=== PATIENT | female | born 1965 | race Caucasian/White ===

== ENCOUNTER 2021-04-03 21:31 | Emergency (ER) | payer OTHER, SELFPAY ==
[2021-04-03 21:42] VITALS: BP 176/91; PULSE 82; RESP 18; TEMP 36.5; O2SAT 100; BMI 27.4
--- NOTE | 2021-04-03 21:45 | DI.RAD.S_ITS ---
PROCEDURE: XR CHEST 1V INDICATIONS: chest pain TECHNIQUE: One view of the chest was acquired. COMPARISON: None. FINDINGS: Surgical changes and devices: None. Lungs and pleura: Lungs are clear. No pleural effusions or pneumothorax. Mediastinum: Mediastinal contours appear normal. Heart size is normal. Bones and chest wall: No suspicious bony lesions. Overlying soft tissues appear unremarkable. IMPRESSION: Normal for age, source of current chest pain symptoms is not seen. Dictated by: Neel Paul M.D. on 04/04/2021 at 7:07 Approved by: Neel Paul M.D. on 04/04/2021 at 7:09
[2021-04-03 22:18] VITALS: BP 158/88; PULSE 78; RESP 15; O2SAT 100
[2021-04-03 22:18] LABS: Add Manual Diff / Slide Review NO; Basophils Absolute Auto 0 /uL (0-100); Basophils Percent Auto 0.5 % (0-2); Eosinophils Absolute Auto 100 /uL (0-450); Eosinophils Percent Auto 0.6 % (2-4); Hemoglobin 12.7 g/dL (12.0-16.0); Lymphocytes Absolute Auto 1300 /uL (1100-4500); Lymphocytes Percent Auto 14.7 % (25-40); Mean Corpuscular HGB Conc 33.3 % (30-36); Mean Corpuscular Hemoglobin 30.1 PG (26-34); Mean Corpuscular Volume 90.5 fL (80-100); Monocytes Absolute Auto 500 /uL (0-900); Monocytes Percent Auto 5.9 % (3-14); Neutrophils Absolute Auto 7000 /uL (1500-7000); Neutrophils Percent Auto 78.3 % (50-75); Platelet Count 242 X10^3/uL (150-400); Red Cell Distribution Width 12.9 % (11.6-14.8)
[2021-04-03 22:29] LABS: Alanine Aminotransferase 17 IU/L (<35); Albumin 4.1 g/dL (3.5-5.0); Albumin Globulin Ratio 1.2 (1.0-2.8); Alkaline Phosphatase 157 U/L (38-126); Aspartate Aminotransferase 28 IU/L (14-36); BUN Creatinine Ratio 18.2 (6-22); Bilirubin Total 0.4 mg/dL (0.2-1.3); Blood Urea Nitrogen 12 mg/dL (7-17); Calcium 9.5 mg/dL (8.4-10.2); Carbon Dioxide 22 mmol/L (22-32); Chloride 98 mmol/L (98-107); Creatine Kinase 69 U/L (30-135); Estimated Glomerular Filt Rate > 60.0 mL/min (>60); Globulin 3.5 g/dL (1.7-4.1); Glucose 112 mg/dL (70-100); HEMOLYSIS 21 (0-50); Lipase 158 U/L (23-300); Potassium 3.5 mmol/L (3.4-5.1); Sodium 130 mmol/L (137-145); Total Protein 7.6 g/dL (6.3-8.2)
[2021-04-03 22:30] VITALS: BP 145/88; PULSE 71; RESP 16; O2SAT 97
[2021-04-03 22:41] LABS: Troponin I < 0.012 ng/mL (0.01-0.034)
[2021-04-03 23:00] VITALS: BP 137/82; PULSE 73; RESP 16; O2SAT 99
[2021-04-03 23:30] VITALS: BP 137/71; PULSE 75; RESP 13; O2SAT 95
[2021-04-04 00:07] VITALS: PULSE 70; RESP 25; O2SAT 98
[2021-04-04 00:30] VITALS: PULSE 71; RESP 13; O2SAT 97
[2021-04-04 01:00] VITALS: PULSE 67; RESP 15; O2SAT 94
[2021-04-04 01:00] LABS: Troponin I < 0.012 ng/mL (0.01-0.034)
[2021-04-04 01:30] VITALS: PULSE 62; RESP 28; O2SAT 95
--- NOTE | 2021-04-04 01:51 | ED_ITS ---
HPI - Chest Pain General Chief Complaint: Chest Pain Stated Complaint: anxiety Time Seen by Provider: 04/04/21 01:51 Source: patient Mode of arrival: Ambulatory Limitations: no limitations History of Present Illness HPI narrative: The patient developed left anterior chest discomfort yesterday. She has ongoing pain in the left upper outer chest. Pain is affected by deep breathing. Pain radiates to the sternum. She has pain in the left anterior neck, exacerbated by motion. She has no acute trauma to these areas. 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 She is uncertain if recent injury. She has no difficulty breathing, dizziness, or syncope/near syncope sensation. She has no cardiopulmonary disease. She is a nonsmoker. She denies recent illness. Related Data Previous Rx's Medication Instructions Recorded ibuprofen 600 mg PO Q6H PRN #40 tab 04/04/21 methocarbamol 750 mg PO Q6H PRN #40 tab 04/04/21 Allergies Allergy/AdvReac Type Severity Reaction Status Date / Time Sulfa (Sulfonamide Allergy Hives Verified 04/03/21 21:42 Antibiotics) tretinoin [From Retin-A] Allergy Rash Verified 04/03/21 21:42 Review of Systems Constitutional Constitutional: Denies body ache(s), Denies fever(s) and Denies headache(s) ENT Ears, Nose, Mouth, and Throat: Denies vertigo, Denies dizziness, Denies headache(s) and Denies sore throat Cardiovascular Cardiovascular: Reports as per HPI and Denies dyspnea Respiratory Respiratory: Denies cough and Denies dyspnea Gastrointestinal Gastrointestinal: Denies abdominal pain, Denies change in bowel habits, Denies diarrhea, Denies nausea and Denies vomiting Musculoskeletal Musculoskeletal: Denies arthralgias Integumentary/Breasts Skin/Breast: Denies pruritus and Denies rash Neurologic Neurologic: Denies confusion, Denies vertigo, Denies dizziness and Denies headache(s) Psychiatric Psychiatric: Denies confusion Hematologic/Lymphatic Hematologic/Lymphatic: Denies easy bruising Patient History Medical History (Updated 04/04/21 @ 03:01 by Lorenzo Price MD) Anxiety Surgical History (Updated 04/04/21 @ 02:56 by Lorenzo Price MD) No significant past surgical history Social History Smoking Status: Never smoker Smoking Status: Never smoker alcohol intake frequency: a few times a month Substance Use Type: does not use Exam Initial Vital Signs Initial Vital Signs: Vital Signs Temperature 97.7 F 04/03/21 21:42 Pulse Rate 82 04/03/21 21:42 Respiratory Rate 18 04/03/21 21:42 Blood Pressure 176/91 H 04/03/21 21:42 Pulse Oximetry 100 04/03/21 21:42 Const General: cooperative and well developed Nutritional Appearance: well nourished Other: No current suggestion of anxiety. HENMT Head: normal to inspection, normocephalic and atraumatic Neck Neck: No JVD Chest Other: Reproducible discomfort in the left upper outer chest, the distribution of the pectoralis major muscle. Tenderness extends to the sternum. Resp Effort & Inspection: normal respiratory effort and able to speak in complete sentences Auscultation: clear to auscultation bilaterally, no rales, no rhonchi and no wheezes Cardio Rate: regular rate Rhythm: regular rhythm Heart Sounds: S1 normal, S2 normal, no click, no gallops, no murmurs and no rubs Pulses: normal peripheral pulses GI Inspection: non-distended Palpation: soft, no hepatosplenomegaly, No guarding, No pulsatile mass and No tender Auscultation: normal bowel sounds Back/Spine/Pelvis Back: normal to inspection Skin General: no rashes or lesions noted Neuro General: patient alert, patient oriented x3, gait normal and no focal motor deficits Speech: speech normal Extrem General: no pedal edema and no calf tenderness Psych Appearance: well kempt Mental Status: mental status grossly normal Speech and Movement: speech and movement normal Course Course Course Narrative: Cardiopulmonary evaluation is normal. Exam suggest musculoskeletal strain to the left anterior chest. She was treated with Toradol here in the ER. She will be discharged home on Toradol and Robaxin. Orders Ordered: ED Orders 04/03/21 21:45 XR chest 1V Stat EKG-12 Lead Stat 04/03/21 22:10 Complete Blood Count AUTO DIFF Stat Comprehensive Metabolic Panel Stat Lipase Stat Troponin & CK Cardiac Panel Stat 04/04/21 00:30 Troponin I Stat Discontinued Medications Ketorolac Tromethamine (Ketorolac 30 Mg/Ml Vial) 15 mg IV NOW ONE Stop: 04/04/21 02:14 Last Admin: 04/04/21 02:23 Dose: 15 mg Documented by: DIANE Vital Signs Vital signs: Vital Signs - 8 hr 04/03/21 21:42 04/03/21 22:18 04/03/21 22:30 Temperature 97.7 F Pulse Rate 82 78 71 Respiratory Rate 18 15 16 Blood Pressure 176/91 H 158/88 H 145/88 H Pulse Oximetry 100 100 97 04/03/21 23:00 04/03/21 23:30 04/04/21 00:07 Temperature Pulse Rate 73 75 70 Respiratory Rate 16 13 25 H Blood Pressure 137/82 137/71 Pulse Oximetry 99 95 98 04/04/21 00:30 04/04/21 01:00 04/04/21 01:30 Temperature Pulse Rate 71 67 62 Respiratory Rate 13 15 28 H Blood Pressure Pulse Oximetry 97 94 95 04/04/21 02:00 04/04/21 02:30 Temperature Pulse Rate 83 62 Respiratory Rate 29 H 21 Blood Pressure Pulse Oximetry 98 96 MDM - Chest Pain Lab Data Result diagrams: 04/03/21 22:10 04/03/21 22:10 Labs: Lab Results 04/03/21 04/03/21 04/04/21 Range/Units 22:10 22:10 00:30 WBC 9.0 (4.5-11.0) X10^3/uL RBC 4.20 (4.0-5.2) X10^6/uL Hgb 12.7 (12.0-16.0) g/dL Hct 38.0 (36-46) % MCV 90.5 (80-100) fL MCH 30.1 (26-34) PG MCHC 33.3 (30-36) % RDW 12.9 (11.6-14.8) % Plt Count 242 (150-400) X10^3/uL Neut % (Auto) 78.3 H (50-75) % Lymph % (Auto) 14.7 L (25-40) % [place] % (Auto) 5.9 (3-14) % Eos % (Auto) 0.6 L (2-4) % Baso % (Auto) 0.5 (0-2) % Neut # (Auto) 7000 (6141-5993) /uL Lymph # (Auto) 1300 (4580-0139) /uL [place] # (Auto) 500 (0-900) /uL Eos # (Auto) 100 (0-450) /uL Baso # (Auto) 0 (0-100) /uL Sodium 130 L (137-145) mmol/L Potassium 3.5 (3.4-5.1) mmol/L Chloride 98 (98-107) mmol/L Carbon Dioxide 22 (22-32) mmol/L BUN 12 (7-17) mg/dL Creatinine 0.66 (0.52-1.04) mg/dL Estimated GFR > 60.0 (>60) mL/min BUN/Creatinine Ratio 18.2 (6-22) Glucose 112 H (70-100) mg/dL Calcium 9.5 (8.4-10.2) mg/dL Total Bilirubin 0.4 (0.2-1.3) mg/dL AST 28 (14-36) IU/L ALT 17 (<35) IU/L Alkaline Phosphatase 157 H (38-126) U/L Total Creatine Kinase 69 (30-135) U/L CK-MB (CK-2) TNP CK-MB (CK-2) Rel Index TNP Troponin I < 0.012 < 0.012 (0.01-0.034) ng/mL Total Protein 7.6 (6.3-8.2) g/dL Albumin 4.1 (3.5-5.0) g/dL Globulin 3.5 (1.7-4.1) g/dL Albumin/Globulin Ratio 1.2 (1.0-2.8) Lipase 158 (23-300) U/L Imaging Data Chest x-ray: Radiologist's Impression: Normal ECG Data Attestation: I personally reviewed and interpreted this ECG as follows: (Normal sinus rhythm rate 60 beats per minute. Normal intervals. No ectopy. No acute ST T wave changes. Normal study.) Discharge Plan Departure Patient Disposition: Home Clinical Impression: Anxiety Chest wall muscle strain Qualifiers: Encounter type: initial encounter Qualified Code(s): S29.011A - Strain of muscle and tendon of front wall of thorax, initial encounter Instructions: DI for Muscle Strain Activity Restrictions/Additional Instructions: Ibuprofen 600 mg every 6 hours as needed for pain. Robaxin 750 mg every 6 hours as needed for muscle spasm. The current discomfort should resolve within about 1 week. Return the ER if symptoms worsen. Prescriptions: New ibuprofen 600 mg tablet 600 mg PO Q6H PRN (Reason: pain) Qty: 40 RF: 0 methocarbamol 750 mg tablet 750 mg PO Q6H PRN (Reason: spasm) Qty: 40 RF: 0
[2021-04-04 02:00] VITALS: PULSE 83; RESP 29; O2SAT 98
[2021-04-04] MEDS: KETOROLAC 30 MG/ML VIAL 15 MG IV (02:23)
[2021-04-04 02:30] VITALS: PULSE 62; RESP 21; O2SAT 96
== END 2021-04-04 03:35 | disposition home or self-care (01) ==
PROVIDERS: Emergency Provider Emergency Medicine
DX: F41.9 Anxiety disorder, unspecified (principal); S29.011A Strain of muscle and tendon of front wall of thorax, initial encounter
CPT/HCPCS: 36415; 71045; 80053; 82550; 83690; 84484; 85025; 93005; 93010; 96374; 99284; J1885